=== PATIENT | female | born 1995 | race Caucasian/White ===

== ENCOUNTER 2016-08-08 12:03 | Emergency (ER) | payer SELFPAY ==
[~2016-08-08] VITALS: Ht 165.1 cm; Wt 75.0 kg
[~2016-08-08 12:03] MED LIST: ATOM60 PO; CLON0.5T PO
[2016-08-08 12:05] VITALS: BP 139/90; PULSE 93; RESP 18; TEMP 98.1; O2SAT 99
[2016-08-08] MEDS ORDERED: LORazepam 1 MG TAB PO ONE (13:00)
[2016-08-08 13:12] LABS: AMPHETAMINE, URINE NEG (NEG); BARBITURATES, URINE NEG (NEG)
[2016-08-08 13:13] LABS: COCAINE, URINE NEG (NEG)
[2016-08-08 14:00] VITALS: BP 122/81; PULSE 68; RESP 18; O2SAT 99
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
== END 2016-08-08 14:40 | disposition home or self-care (01) ==
LOC: PHED 12:03
DX: F41.9 Anxiety disorder, unspecified (principal); F95.2 Tourette's disorder; F17.210 Nicotine dependence, cigarettes, uncomplicated
CPT/HCPCS: 80307; 99283